=== PATIENT | male | born 1960 | race Two or more races ===

== ENCOUNTER 2017-10-20 07:37 | Inpatient (IN) | payer MEDICAID ==
[~2017-10-20] VITALS: Ht 167.6 cm; Wt 83.4 kg
[2017-10-20] MEDS ORDERED: CLINDAMYCIN 900MG IV 50 ML IV ONE (08:15)
[2017-10-20] MEDS ORDERED: PIPERACILLIN-TAZOB 3.375GM 100 ML IV ONE (08:15)
[2017-10-20] MEDS ORDERED: SODIUM CHLORIDE 0.9% 1,000 ML IV ONE ×2 (08:15)
[2017-10-20 08:47] LABS: Urine Bacteria NONE SEEN /hpf (None Seen); Urine Blood Negative /uL (Negative); Urine Mucus FEW (None Seen); Urine Specific Gravity 1.025 (1.001-1.035); Urine WBC 2 /hpf (0 - 3)
[2017-10-20 08:49] LABS: Basophils # (auto) 0 uL; Basophils % (auto) 0.2 % (0.0-2.0); Eosinophils # (auto) 0.1 uL; Eosinophils % (auto) 0.4 % (0.0-7.0); Hematocrit 44.2 % (41.0-53.0); Hemoglobin 14.6 g/dL (13.5-17.5); Lymphocytes # (auto) 0.8 uL; Lymphocytes % (auto) 5.3 % (10.0-50.0); Mean Corpuscular Hemoglobin 29.4 pg (28.0-32.0); Mean Corpuscular Volume 89.1 fL (80.0-100.0); Monocytes # (auto) 0.8 uL; Monocytes % (auto) 5.4 % (0.0-12.0); Neutrophils # (auto) 13.1 uL; Neutrophils % (auto) 88.7 % (37.0-80.0); Platelet Count (auto) 268 10^3/uL (140-450); Red Blood Cells 4.96 10^6/uL (4.5-5.90); Red Cell Distribution Width 14.3 % (11.8-14.3); White Blood Cell 14.8 10^3/uL (4.4-10.8)
[2017-10-20 09:10] LABS: Lactic Acid w/Reflex 2.5 mmol/L (0.4-2.0)
[2017-10-20] MEDS ORDERED: KETOROLAC TROMETH 30 MG/ML 1ML VIAL IV ONE (09:45)
[2017-10-20 10:04] LABS: INR 1.02 (0.9-1.15); Partial Thromboplastin Time 31.2 sec (23.78-33.04); Prothrombin Time 10.9 sec (9.27-12.13)
[2017-10-20 10:18] LABS: Alanine Aminotransferase 18 U/L (16-61); Albumin 3.6 g/dL (3.4-5.0); Anion Gap 10 (5-15); Aspartate Aminotransferase 14 U/L (15-37); BUN/Creatinine Ratio 9.9; Blood Urea Nitrogen 11 mg/dL (7-18); Calcium 8.3 mg/dL (8.5-10.1); Carbon Dioxide 25 mmol/L (21-32); Chloride 101 mmol/L (98-107); GFR African American 88 mL/min; GFR Non-African American 73 mL/min; Glucose 102 mg/dL (74-106); Potassium 3.8 mmol/L (3.5-5.1); Sodium 136 mmol/L (136-145)
[2017-10-20 10:22] LABS: Alkaline Phosphatase 67 U/L (45-117); Bilirubin, Total 0.5 mg/dL (0.2-1.0); Total Protein 8.4 g/dL (6.4-8.2)
[2017-10-20] MEDS ORDERED: ACETAMINOPHEN 325 MG TAB PO PRN (11:45)
[2017-10-20] MEDS ORDERED: ONDANSETRON HCL 4 MG/2 ML VIAL IV PRN (11:45)
[2017-10-20] MEDS ORDERED: MORPHINE SULFATE 4 MG/ML SYR/VIAL IV PRN (11:45)
[2017-10-20] MEDS ORDERED: DOCUSATE SOD 100 MG CAP PO PRN (11:45)
[2017-10-20] MEDS: PIPERACILLIN-TAZOB 3.375GM 100 ML IV SCH ×2 (12:26→18:49)
[2017-10-20 13:00] VITALS: BP 126/68
[2017-10-20] MEDS: CLINDAMYCIN 300MG IV 50 ML IV SCH ×2 (14:35→21:59)
[2017-10-20] MEDS: SODIUM CHLOR 0.9% PF (SALINE LOCK) 10ML VIAL/SYR IV SCH ×2 (15:10→22:00)
[2017-10-20] MEDS: HYDROcodone-ACET 5/325MG TAB PO PRN ×2 (15:10→21:58)
[2017-10-20 17:00] VITALS: BP 110/59
[2017-10-20] MEDS: ASCORBIC ACID 500 MG TAB PO SCH (21:58)
[2017-10-20 22:02] VITALS: BP 102/59
[2017-10-21] MEDS: PIPERACILLIN-TAZOB 3.375GM 100 ML IV SCH ×4 (00:37→17:44)
[2017-10-21] MEDS: CLINDAMYCIN 300MG IV 50 ML IV SCH ×3 (05:16→21:33)
[2017-10-21] MEDS: SODIUM CHLOR 0.9% PF (SALINE LOCK) 10ML VIAL/SYR IV SCH ×3 (06:00→22:00)
[2017-10-21 06:01] LABS: Albumin 2.8 g/dL (3.4-5.0); Calcium 7.7 mg/dL (8.5-10.1); Potassium 3.8 mmol/L (3.5-5.1)
[2017-10-21 06:03] LABS: BUN/Creatinine Ratio 12.1
[2017-10-21 06:06] LABS: Bilirubin, Total 0.7 mg/dL (0.2-1.0); Total Protein 6.9 g/dL (6.4-8.2)
[2017-10-21 06:40] LABS: Basophils # (auto) 0 uL; Basophils % (auto) 0.2 % (0.0-2.0); Eosinophils # (auto) 0.1 uL; Eosinophils % (auto) 0.3 % (0.0-7.0); Hematocrit 37.8 % (41.0-53.0); Hemoglobin 12.6 g/dL (13.5-17.5); Lymphocytes # (auto) 0.9 uL; Mean Corpuscular Hemoglobin 29.4 pg (28.0-32.0); Mean Corpuscular Hgb Conc. 33.2 g/dL (32.0-36.0); Mean Corpuscular Volume 88.5 fL (80.0-100.0); Monocytes # (auto) 0.9 uL; Monocytes % (auto) 4.6 % (0.0-12.0); Neutrophils % (auto) 89.9 % (37.0-80.0); Platelet Count (auto) 229 10^3/uL (140-450); Red Blood Cells 4.27 10^6/uL (4.5-5.90); Red Cell Distribution Width 14.2 % (11.8-14.3); White Blood Cell 18.9 10^3/uL (4.4-10.8)
[2017-10-21 09:23] VITALS: BP 100/64
[2017-10-21] MEDS: ASCORBIC ACID 500 MG TAB PO SCH ×2 (09:43→21:32)
[2017-10-21] MEDS: MULTIPLE VITAMIN TAB PO SCH (09:43)
[2017-10-21] MEDS: ZINC SULFATE 220mg CAP or TAB PO SCH (09:43)
[2017-10-21 12:53] VITALS: BP 114/65
[2017-10-21] MEDS: Ensure Enlive Strawberry 8oz Bottle PO SCH ×2 (13:37→17:44)
[2017-10-21 17:22] VITALS: BP 108/76
[2017-10-21] MEDS: HYDROcodone-ACET 5/325MG TAB PO PRN (21:57)
[2017-10-21 22:00] VITALS: BP 92/57
[2017-10-21] MEDS: TEMAZEPAM 15 MG CAP PO PRN (23:41)
[2017-10-22] MEDS: PIPERACILLIN-TAZOB 3.375GM 100 ML IV SCH ×4 (01:02→18:15)
[2017-10-22 05:00] VITALS: BP 105/67
[2017-10-22] MEDS: CLINDAMYCIN 300MG IV 50 ML IV SCH ×2 (05:41→13:40)
[2017-10-22 06:04] LABS: Basophils # (auto) 0 uL; Basophils % (auto) 0.1 % (0.0-2.0); Eosinophils # (auto) 0.4 uL; Eosinophils % (auto) 2.8 % (0.0-7.0); Hematocrit 36.7 % (41.0-53.0); Hemoglobin 12.6 g/dL (13.5-17.5); Lymphocytes # (auto) 1.1 uL; Mean Corpuscular Hemoglobin 30.4 pg (28.0-32.0); Mean Corpuscular Hgb Conc. 34.4 g/dL (32.0-36.0); Mean Corpuscular Volume 88.3 fL (80.0-100.0); Monocytes # (auto) 0.8 uL; Monocytes % (auto) 5.2 % (0.0-12.0); Neutrophils # (auto) 13.2 uL; Neutrophils % (auto) 84.9 % (37.0-80.0); Platelet Count (auto) 227 10^3/uL (140-450); Red Blood Cells 4.16 10^6/uL (4.5-5.90); Red Cell Distribution Width 14.1 % (11.8-14.3); White Blood Cell 15.6 10^3/uL (4.4-10.8)
[2017-10-22 06:15] LABS: Potassium 3.8 mmol/L (3.5-5.1)
[2017-10-22] MEDS: SODIUM CHLOR 0.9% PF (SALINE LOCK) 10ML VIAL/SYR IV SCH ×3 (06:15→22:05)
[2017-10-22] MEDS: Ensure Enlive Strawberry 8oz Bottle PO SCH ×3 (08:47→18:16)
[2017-10-22 09:00] VITALS: BP 128/54
[2017-10-22] MEDS: ASCORBIC ACID 500 MG TAB PO SCH ×2 (09:10→22:04)
[2017-10-22] MEDS: ZINC SULFATE 220mg CAP or TAB PO SCH (09:10)
[2017-10-22] MEDS: MULTIPLE VITAMIN TAB PO SCH (09:10)
[2017-10-22 13:00] VITALS: BP 100/66
[2017-10-22] MEDS: HYDROcodone-ACET 5/325MG TAB PO PRN ×2 (13:54→22:04)
[2017-10-22 16:41] VITALS: BP 110/61
[2017-10-22] MEDS: VANCOMYCIN 1GM/250ML 250 ML IV SCH (17:18)
[2017-10-22 22:00] VITALS: BP 102/58
[2017-10-23] MEDS: PIPERACILLIN-TAZOB 3.375GM 100 ML IV SCH ×2 (00:58→06:18)
[2017-10-23] MEDS: TEMAZEPAM 15 MG CAP PO PRN (00:59)
[2017-10-23 05:00] VITALS: BP 112/64
[2017-10-23] MEDS: VANCOMYCIN 1GM/250ML 250 ML IV SCH ×2 (05:21→18:25)
[2017-10-23] MEDS: SODIUM CHLOR 0.9% PF (SALINE LOCK) 10ML VIAL/SYR IV SCH ×3 (06:07→22:00)
[2017-10-23 07:54] LABS: Basophils # (auto) 0 uL; Basophils % (auto) 0.1 % (0.0-2.0); Eosinophils # (auto) 0.3 uL; Eosinophils % (auto) 2.7 % (0.0-7.0); Hematocrit 36.2 % (41.0-53.0); Hemoglobin 12.4 g/dL (13.5-17.5); Lymphocytes # (auto) 1.3 uL; Lymphocytes % (auto) 10.5 % (10.0-50.0); Mean Corpuscular Hemoglobin 30.2 pg (28.0-32.0); Mean Corpuscular Hgb Conc. 34.3 g/dL (32.0-36.0); Mean Corpuscular Volume 88.1 fL (80.0-100.0); Monocytes # (auto) 0.8 uL; Monocytes % (auto) 6.5 % (0.0-12.0); Neutrophils # (auto) 10.1 uL; Neutrophils % (auto) 80.2 % (37.0-80.0); Platelet Count (auto) 269 10^3/uL (140-450); Red Blood Cells 4.11 10^6/uL (4.5-5.90); Red Cell Distribution Width 14.3 % (11.8-14.3); White Blood Cell 12.7 10^3/uL (4.4-10.8)
[2017-10-23 08:03] LABS: BUN/Creatinine Ratio 10.5; Potassium 3.8 mmol/L (3.5-5.1)
[2017-10-23 09:03] VITALS: BP 92/56
[2017-10-23] MEDS ORDERED: SULFAMETHOX W/TRIMETH(800/160MG) DS TAB PO ONE (10:15)
[2017-10-23] MEDS: ZINC SULFATE 220mg CAP or TAB PO SCH (10:26)
[2017-10-23] MEDS: ASCORBIC ACID 500 MG TAB PO SCH ×2 (10:26→21:34)
[2017-10-23] MEDS: Ensure Enlive Strawberry 8oz Bottle PO SCH ×3 (10:26→18:26)
[2017-10-23] MEDS: MULTIPLE VITAMIN TAB PO SCH (10:26)
[2017-10-23 13:11] VITALS: BP 145/73
[2017-10-23] MEDS: HYDROcodone-ACET 5/325MG TAB PO PRN ×2 (16:43→21:34)
[2017-10-23 17:17] VITALS: BP 111/69
[2017-10-23] MEDS: SULFAMETHOX W/TRIMETH(800/160MG) DS TAB PO SCH (21:34)
[2017-10-23 21:53] VITALS: BP 113/65
[2017-10-24] MEDS: TEMAZEPAM 15 MG CAP PO PRN ×2 (00:46→23:53)
[2017-10-24] MEDS: HYDROcodone-ACET 5/325MG TAB PO PRN ×2 (04:38→20:00)
[2017-10-24 04:58] VITALS: BP 118/79
[2017-10-24 05:06] LABS: Basophils # (auto) 0 uL; Basophils % (auto) 0.4 % (0.0-2.0); Eosinophils # (auto) 0.4 uL; Eosinophils % (auto) 3.8 % (0.0-7.0); Hematocrit 38.9 % (41.0-53.0); Hemoglobin 13.2 g/dL (13.5-17.5); Lymphocytes # (auto) 1.6 uL; Lymphocytes % (auto) 16.2 % (10.0-50.0); Mean Corpuscular Hemoglobin 29.9 pg (28.0-32.0); Mean Corpuscular Hgb Conc. 33.8 g/dL (32.0-36.0); Mean Corpuscular Volume 88.5 fL (80.0-100.0); Monocytes # (auto) 0.9 uL; Monocytes % (auto) 9.2 % (0.0-12.0); Neutrophils # (auto) 6.8 uL; Neutrophils % (auto) 70.4 % (37.0-80.0); Nucleated Red Blood Cells % 0.1 %; Platelet Count (auto) 310 10^3/uL (140-450); Red Cell Distribution Width 14.6 % (11.8-14.3); White Blood Cell 9.7 10^3/uL (4.4-10.8)
[2017-10-24 05:24] LABS: BUN/Creatinine Ratio 10.6; Calcium 8.4 mg/dL (8.5-10.1); Potassium 3.8 mmol/L (3.5-5.1)
[2017-10-24] MEDS: VANCOMYCIN 1GM/250ML 250 ML IV SCH ×3 (05:36→20:50)
[2017-10-24] MEDS: SODIUM CHLOR 0.9% PF (SALINE LOCK) 10ML VIAL/SYR IV SCH ×3 (05:43→21:49)
[2017-10-24] MEDS: Ensure Enlive Strawberry 8oz Bottle PO SCH ×3 (08:42→18:31)
[2017-10-24 09:00] VITALS: BP 126/75
[2017-10-24] MEDS: SULFAMETHOX W/TRIMETH(800/160MG) DS TAB PO SCH ×2 (09:33→21:49)
[2017-10-24] MEDS: ASCORBIC ACID 500 MG TAB PO SCH ×2 (09:33→21:48)
[2017-10-24] MEDS: MULTIPLE VITAMIN TAB PO SCH (09:33)
[2017-10-24] MEDS: ZINC SULFATE 220mg CAP or TAB PO SCH (09:33)
[2017-10-24 13:00] VITALS: BP 128/80
[2017-10-24 22:00] VITALS: BP 111/74
[2017-10-25] MEDS: HYDROcodone-ACET 5/325MG TAB PO PRN (04:20)
[2017-10-25 05:00] VITALS: BP 105/73
[2017-10-25 05:05] LABS: Basophils # (auto) 0.1 uL; Basophils % (auto) 0.6 % (0.0-2.0); Eosinophils # (auto) 0.5 uL; Eosinophils % (auto) 4.8 % (0.0-7.0); Hematocrit 39.8 % (41.0-53.0); Hemoglobin 13.4 g/dL (13.5-17.5); Lymphocytes # (auto) 1.9 uL; Lymphocytes % (auto) 18.4 % (10.0-50.0); Mean Corpuscular Hemoglobin 29.8 pg (28.0-32.0); Mean Corpuscular Hgb Conc. 33.7 g/dL (32.0-36.0); Mean Corpuscular Volume 88.4 fL (80.0-100.0); Neutrophils # (auto) 6.7 uL; Neutrophils % (auto) 66.2 % (37.0-80.0); Nucleated Red Blood Cells % 0.1 %; Platelet Count (auto) 348 10^3/uL (140-450); Red Cell Distribution Width 14.4 % (11.8-14.3); White Blood Cell 10.1 10^3/uL (4.4-10.8)
[2017-10-25 05:30] LABS: BUN/Creatinine Ratio 9.2; Calcium 8.4 mg/dL (8.5-10.1); Potassium 4.3 mmol/L (3.5-5.1)
[2017-10-25] MEDS: VANCOMYCIN 1GM/250ML 250 ML IV SCH ×3 (05:51→21:45)
[2017-10-25] MEDS: SODIUM CHLOR 0.9% PF (SALINE LOCK) 10ML VIAL/SYR IV SCH ×3 (06:00→21:45)
[2017-10-25] MEDS: ZINC SULFATE 220mg CAP or TAB PO SCH (08:39)
[2017-10-25] MEDS: SULFAMETHOX W/TRIMETH(800/160MG) DS TAB PO SCH ×2 (08:39→21:45)
[2017-10-25] MEDS: IBUPROFEN 800 MG TAB PO SCH ×3 (08:40→21:46)
[2017-10-25] MEDS: MULTIPLE VITAMIN TAB PO SCH (08:40)
[2017-10-25] MEDS: Ensure Enlive Strawberry 8oz Bottle PO SCH ×3 (08:40→17:43)
[2017-10-25] MEDS: ASCORBIC ACID 500 MG TAB PO SCH ×2 (08:41→21:46)
[2017-10-25 09:00] VITALS: BP 124/75
[2017-10-25 13:00] VITALS: BP 117/70
[2017-10-25 17:00] VITALS: BP 108/69
[2017-10-25 21:57] VITALS: BP 110/81
[2017-10-26] MEDS: HYDROcodone-ACET 5/325MG TAB PO PRN (02:13)
[2017-10-26 04:41] VITALS: BP 100/85
[2017-10-26] MEDS: SODIUM CHLOR 0.9% PF (SALINE LOCK) 10ML VIAL/SYR IV SCH ×2 (05:30→14:00)
[2017-10-26] MEDS: VANCOMYCIN 1GM/250ML 250 ML IV SCH ×2 (05:30→14:00)
[2017-10-26 07:02] LABS: Basophils # (auto) 0 uL; Basophils % (auto) 0.4 % (0.0-2.0); Eosinophils # (auto) 0.5 uL; Eosinophils % (auto) 5.1 % (0.0-7.0); Hematocrit 40.8 % (41.0-53.0); Hemoglobin 13.8 g/dL (13.5-17.5); Lymphocytes # (auto) 2.1 uL; Lymphocytes % (auto) 20.6 % (10.0-50.0); Mean Corpuscular Hemoglobin 29.7 pg (28.0-32.0); Mean Corpuscular Hgb Conc. 33.7 g/dL (32.0-36.0); Mean Corpuscular Volume 88.2 fL (80.0-100.0); Monocytes # (auto) 0.9 uL; Neutrophils # (auto) 6.6 uL; Neutrophils % (auto) 64.9 % (37.0-80.0); Nucleated Red Blood Cells % 0.1 %; Platelet Count (auto) 376 10^3/uL (140-450); Red Blood Cells 4.63 10^6/uL (4.5-5.90); Red Cell Distribution Width 14.4 % (11.8-14.3); White Blood Cell 10.1 10^3/uL (4.4-10.8)
[2017-10-26 07:15] LABS: BUN/Creatinine Ratio 12.6; Calcium 8.6 mg/dL (8.5-10.1); Potassium 4.5 mmol/L (3.5-5.1)
[2017-10-26 09:00] VITALS: BP 112/80
[2017-10-26] MEDS: Ensure Enlive Strawberry 8oz Bottle PO SCH ×2 (09:04→12:53)
[2017-10-26] MEDS: ZINC SULFATE 220mg CAP or TAB PO SCH (09:53)
[2017-10-26] MEDS: MULTIPLE VITAMIN TAB PO SCH (09:53)
[2017-10-26] MEDS: SULFAMETHOX W/TRIMETH(800/160MG) DS TAB PO SCH (09:53)
[2017-10-26] MEDS: ASCORBIC ACID 500 MG TAB PO SCH (09:53)
[2017-10-26] MEDS ORDERED: CHLORHEXIDINE 4% TOPICAL soln 237ML TOP SCH (10:00)
[2017-10-26 11:32] VITALS: BP 112/80
[2017-10-26 13:00] VITALS: BP 125/83
== END 2017-10-26 16:30 | disposition home or self-care (01) | DRG 720 ==
LOC: ER 07:37 → OVERFLOW 07:38 → WEST WING 12:08
PROVIDERS: ADMIT Internal Medicine; ATTEND Internal Medicine
DX: A41.02 Sepsis due to Methicillin resistant Staphylococcus aureus (principal); E44.0 Moderate protein-calorie malnutrition; E83.51 Hypocalcemia; E88.09 Other disorders of plasma-protein metabolism, not elsewhere classified; L03.115 Cellulitis of right lower limb; N18.2 Chronic kidney disease, stage 2 (mild); B95.62 Methicillin resistant Staphylococcus aureus infection as the cause of diseases classified elsewhere; Z68.29 Body mass index [BMI] 29.0-29.9, adult
CPT/HCPCS: 36415; 71045; 80048; 80053; 80202; 81001; 83605; 83880; 84484; 85025; 85610; 85730; 87040; 87077; 87081; 87186; 87205; 93971; 96365; 96366; 96368; 96375; J1885; J2543; J3490